=== PATIENT | male | born 1965 | race Two or more races ===

== ENCOUNTER 2016-08-19 11:08 | Emergency (ER) | payer MEDICAID ==
[~2016-08-19] VITALS: Ht 177.8 cm; Wt 83.5 kg
[2016-08-19] MEDS ORDERED: TETANUS-DIPTH-ACEL PERTUSSIS 0.5ML SYRG IM ONE (12:15)
[2016-08-19 12:22] VITALS: BP 137/68
== END 2016-08-19 12:23 | disposition home or self-care (01) ==
LOC: ER 11:08
DX: J34.0 Abscess, furuncle and carbuncle of nose (principal); Z23 Encounter for immunization
CPT/HCPCS: 90471; 90715